=== PATIENT | male | born 1950 ===

== ENCOUNTER 2024-01-14 10:13 | Outpatient (CLI) | payer OTHER | END 2024-01-14 10:17 | disposition home or self-care (01) | LOC: SONOGRAMA 10:13 | PROVIDERS: ATTEND Physical Medicine & Rehabilitation Hospice and Palliative Medicine | DX: D17.9 Benign lipomatous neoplasm, unspecified (principal); M54.6 Pain in thoracic spine; M62.830 Muscle spasm of back ==

== ENCOUNTER 2024-01-18 10:21 | Outpatient (CLI) | payer OTHER | END 2024-01-18 10:31 | disposition home or self-care (01) | LOC: RAD 10:21 | PROVIDERS: ATTEND Physical Medicine & Rehabilitation Hospice and Palliative Medicine | DX: D17.9 Benign lipomatous neoplasm, unspecified (principal); M54.6 Pain in thoracic spine; M62.830 Muscle spasm of back; M25.512 Pain in left shoulder ==